=== PATIENT | female | born 1950 | race Caucasian/White ===

== ENCOUNTER 2016-04-08 10:55 | Outpatient (CLI) | payer OTHER | END 2016-04-08 10:56 | disposition home or self-care (01) | DX: S83.242A Other tear of medial meniscus, current injury, left knee, initial encounter (principal); M23.8X2 Other internal derangements of left knee; M25.562 Pain in left knee ==

== ENCOUNTER 2016-12-02 23:53 | Outpatient (CLI) | payer OTHER ==
[2016-12-02 18:28] LABS: BASOPHILS # (AUTO) 0.1 10^3/uL (0.0-0.1); BASOPHILS % (AUTO) 1.5 %; EOSINOPHILS # (AUTO) 0.1 10^3/uL (0.0-0.7); EOSINOPHILS % (AUTO) 2.6 %; HCT - HEMATOCRIT 40.6 % (37.0-47.0); LYMPHOCYTES # (AUTO) 2.5 10^3/uL (1.5-3.5); LYMPHOCYTES % (AUTO) 45.5 %; MEAN CORPUSCULAR HEMOGLOBIN 26.7 pg (27.0-31.0); MEAN CORPUSCULAR HGB CONC 32.1 g/dL (32.0-36.0); MEAN CORPUSCULAR VOLUME 83.3 fL (81.0-99.0); MEAN PLATELET VOLUME 8.6 fL (7.9-10.8); MONOCYTES # (AUTO) 0.4 10^3/uL (0.0-1.0); MONOCYTES % (AUTO) 6.6 %; NEUTROPHILS # (AUTO) 2.4 10^3/uL (1.5-6.6); NEUTROPHILS % (AUTO) 43.8 %; NUCLEATED RED BLOOD CELLS AUTO 0.1 /100WBC; RED BLOOD COUNT 4.87 10^6/uL (4.20-5.40); RED CELL DISTRIBUTION WIDTH 13.6 % (12.0-15.0); UNCORRECTED WHITE BLOOD COUNT 5.5 x10^3/uL; WHITE BLOOD COUNT 5.5 x10^3/uL (4.8-10.8)
[2016-12-02 18:53] LABS: ALBUMIN/GLOBULIN RATIO 1.1 (1.0-2.2); BILIRUBIN,TOTAL 0.5 mg/dL (0.2-1.0); BUN - BLOOD UREA NITROGEN 20 mg/dL (6-20); CALCIUM 9.1 mg/dL (8.5-10.3); CARBON DIOXIDE - CO2 27 mmol/L (21-32); CHLORIDE 105 mmol/L (101-111); CHOLESTEROL 257 mg/dL; CREATININE 0.9 mg/dL (0.4-1.0); GFR - MDRD 63 (>89); GLUCOSE 73 mg/dL (70-100); HDL CHOLESTEROL 64 mg/dL; LDL/HDL RATIO 2.8 (<4.4); POTASSIUM 3.9 mmol/L (3.5-5.0); SODIUM 138 mmol/L (135-145); TRIGLYCERIDES 82 mg/dL; VLDL CHOLESTEROL 16 mg/dL
== END 2016-12-02 23:54 | disposition home or self-care (01) ==
LOC: LAB.R 23:53
PROVIDERS: ATTEND Physician Assistant Medical
DX: Z00.00 Encounter for general adult medical examination without abnormal findings (principal); M81.0 Age-related osteoporosis without current pathological fracture; Z11.59 Encounter for screening for other viral diseases
CPT/HCPCS: 80053; 80061; 82306; 84443; 85025; 86803

== ENCOUNTER 2016-12-07 08:00 | Outpatient (CLI) | payer OTHER | END 2016-12-07 08:01 | disposition home or self-care (01) | LOC: LAB.R 08:00 | PROVIDERS: ATTEND Physician Assistant Medical | DX: N30.00 Acute cystitis without hematuria (principal) | CPT/HCPCS: 87086 ==

== ENCOUNTER 2016-12-24 08:37 | Outpatient (CLI) | payer OTHER ==
--- NOTE | 2016-12-28 11:49 | DEXA Report ---
DEXA SCAN: 12/24/2016 CLINICAL INDICATION: Postmenopausal. TECHNIQUE: Dual energy x-ray absorptiometry (DXA) was performed on a [facility] system. Regions measured are the AP spine, femoral neck, and, if needed, forearm. COMPARISON: None. In accordance with the International Society for Clinical Densitometry (ISCD) guidelines, data from previous exams may be reanalyzed using current recommendations and techniques. This is done to allow a more accurate basis for comparison with the current study. FINDINGS The data for the lumbar spine is as follows: REGION BMD (g/cm/cm) T-SCORE Z-SCORE L1 0.934 -1.6 -0.5 L2 0.846 -2.9 -1.9 L3 0.876 -2.7 -1.6 L4 1.049 -1.3 -0.2 TOTAL 0.929 -2.1 -1.0 NOTE: All evaluable vertebrae are used for classification. The data for the hip is as follows: REGION BMD (g/cm/cm) T-SCORE Z-SCORE Neck 0.871 -1.2 -0.1 TOTAL 0.937 -0.6 0.3 NOTE: The femoral neck or total proximal femur, whichever is lowest, is used for classification. IMPRESSION: THE WHO CLASSIFICATION BASED ON THE INTERNATIONAL REFERENCE STANDARD IS OSTEOPENIA. THE FRACTURE RISK IS INCREASED. RECOMMENDATION: Patients with diagnosis of osteoporosis or osteopenia should have regular bone mineral density assessment. For those eligible for Medicare, routine testing is allowed once every 2 years. Testing frequency can be increased for patients who have rapidly progressing disease or for those who are receiving medical therapy to restore bone mass. COMMENT: World Health Organization (WHO) definitions for osteoporosis and osteopenia: NORMAL BMD: T-score at -1.0 or higher, fracture risk is low. OSTEOPENIA BMD: T-score between -1.0 and -2.5, fracture risk is increased. OSTEOPOROSIS BMD: T-score at -2.5 or lower, fracture risk high. National Osteoporosis Foundation recommends: 1. Obtain adequate dietary calcium (at least 1200 mg per day) and vitamin D (400 -800 international units per day). 2. Participate, as appropriate, in regular weightbearing and muscle- strengthening exercise. 3. Avoid tobacco use and reduce alcohol and caffeine intake. 4. For more detailed information see the website at www.NOF.org. MTDD
== END 2016-12-24 08:38 | disposition home or self-care (01) ==
LOC: DI 08:37
PROVIDERS: ATTEND Physician Assistant Medical
DX: M85.89 Other specified disorders of bone density and structure, multiple sites (principal); M25.512 Pain in left shoulder
CPT/HCPCS: 77080

== ENCOUNTER 2016-12-24 08:39 | Outpatient (CLI) | payer OTHER ==
--- NOTE | 2016-12-24 13:41 | XRAY Report ---
TWO VIEW LEFT SHOULDER: 12/24/2016 CLINICAL INDICATION: Pain. FINDINGS: Frontal and scapular Y views of the left shoulder demonstrate no evidence of fracture or d islocation. The joint spaces are preserved. No radiopaque foreign body is seen in the soft tissues. IMPRESSION: NORMAL LEFT SHOULDER. JOB #: [id number] EXT JOB #:[id number]
== END 2016-12-24 08:40 | disposition home or self-care (01) ==
LOC: DI 08:39
PROVIDERS: ATTEND Physician Assistant Medical
DX: M25.512 Pain in left shoulder (principal)

== ENCOUNTER 2017-05-31 08:00 | Outpatient (CLI) | payer OTHER | END 2017-05-31 08:01 | disposition home or self-care (01) | LOC: LAB.R 08:00 | PROVIDERS: ATTEND Physician Assistant Medical | DX: N30.00 Acute cystitis without hematuria (principal) | CPT/HCPCS: 87086 ==

== ENCOUNTER 2017-06-07 11:17 | Outpatient (CLI) | payer MEDICARE, OTHER ==
--- NOTE | 2017-06-08 11:48 | Mammography Report ---
BILATERAL SCREENING MAMMOGRAM: 06/07/2017. COMPARISON: Mammogram 03/17/2016. INDICATION: Screening. TECHNIQUE: Bilateral CC and MLO breast views. FINDINGS: The breast parenchyma is heterogeneously dense which may limit the sensitivity of mammography. Postoperative change of the left breast is noted. No dominant mass, architectural distortion, or concerning cluster of microcalcifications are seen. IMPRESSION: 1. BI-RADS 2 - BENIGN FINDINGS. 2. RECOMMEND ANNUAL SCREENING MAMMOGRAM. STANDARD QUALIFYING STATEMENTS: 1. This examination was reviewed with the aid of Computer-Aided Detection (CAD) . 2. A negative or benign imaging report should not delay biopsy if clinically suspicious findings are present. Consider surgical consultation if warranted. More than 5 % of cancers are not identified by imaging. 3. Dense breasts may obscure an underlying neoplasm. TD: 06/08/2017 11:47 MARTHA
== END 2017-06-07 11:18 | disposition home or self-care (01) ==
LOC: DI 11:17
PROVIDERS: ATTEND Physician Assistant Medical
DX: Z12.31 Encounter for screening mammogram for malignant neoplasm of breast (principal)
CPT/HCPCS: 77067

== ENCOUNTER 2017-06-13 08:00 | Outpatient (CLI) | payer MEDICARE, OTHER | END 2017-06-13 08:01 | disposition home or self-care (01) | LOC: LAB.R 08:00 | PROVIDERS: ATTEND Physician Assistant Medical | DX: N30.00 Acute cystitis without hematuria (principal) | CPT/HCPCS: 87086 ==

== ENCOUNTER 2018-04-15 09:15 | Outpatient (CLI) | payer MEDICARE, OTHER ==
[2018-04-15 10:21] LABS: ALBUMIN 3.8 g/dL (3.2-5.5); ALBUMIN/GLOBULIN RATIO 1.1 (1.0-2.2); ALKALINE PHOSPHATASE 61 IU/L (42-121); ALT ALANINE AMINOTRANSFERASE 26 IU/L (10-60); AST ASPARTATE AMINOTRANSFERASE 24 IU/L (10-42); BILIRUBIN,TOTAL 0.6 mg/dL (0.2-1.0); BUN - BLOOD UREA NITROGEN 14 mg/dL (6-20); CALCIUM 8.9 mg/dL (8.5-10.3); CARBON DIOXIDE - CO2 26 mmol/L (21-32); CHLORIDE 104 mmol/L (101-111); CHOL/HDL RATIO 3.5 (<4.4); CHOLESTEROL 225 mg/dL; CREATININE 0.8 mg/dL (0.4-1.0); GFR - MDRD 72 (>89); GLUCOSE 91 mg/dL (70-100); HDL CHOLESTEROL 64 mg/dL; LDL CHOLESTEROL,CALCULATED 144 mg/dL; LDL/HDL RATIO 2.3 (<4.4); SODIUM 136 mmol/L (135-145); TOTAL PROTEIN 7.3 g/dL (6.7-8.2); VLDL CHOLESTEROL 17 mg/dL
[2018-04-15 10:23] LABS: BASOPHILS # (AUTO) 0.1 10^3/uL (0.0-0.1); BASOPHILS % (AUTO) 1.4 %; EOSINOPHILS # (AUTO) 0.1 10^3/uL (0.0-0.7); EOSINOPHILS % (AUTO) 2.7 %; HGB - HEMOGLOBIN 13.5 g/dL (12.0-16.0); LYMPHOCYTES # (AUTO) 1.1 10^3/uL (1.5-3.5); LYMPHOCYTES % (AUTO) 23.7 %; MEAN CORPUSCULAR HEMOGLOBIN 27.6 pg (27.0-31.0); MEAN CORPUSCULAR HGB CONC 33.4 g/dL (32.0-36.0); MEAN CORPUSCULAR VOLUME 82.6 fL (81.0-99.0); MEAN PLATELET VOLUME 8.1 fL (7.9-10.8); MONOCYTES # (AUTO) 0.5 10^3/uL (0.0-1.0); MONOCYTES % (AUTO) 10.8 %; NEUTROPHILS % (AUTO) 61.4 %; PLT - PLATELET COUNT 232 10^3/uL (130-450); RED BLOOD COUNT 4.88 10^6/uL (4.20-5.40); RED CELL DISTRIBUTION WIDTH 13.8 % (12.0-15.0); WHITE BLOOD COUNT 4.9 x10^3/uL (4.8-10.8)
== END 2018-04-15 23:59 | disposition home or self-care (01) ==
LOC: LAB.R 09:15
PROVIDERS: ATTEND Physician Assistant Medical
DX: Z79.899 Other long term (current) drug therapy (principal); Z20.3 Contact with and (suspected) exposure to rabies
CPT/HCPCS: 36415; 80053; 80061; 81599; 82306; 83721; 84443; 85025; 86382

== ENCOUNTER 2018-04-15 09:30 | Outpatient (CLI) | payer MEDICARE, OTHER | END 2018-04-15 09:31 | disposition home or self-care (01) | LOC: LAB 09:30 | PROVIDERS: ATTEND Physician Assistant Medical | DX: Z53.9 Procedure and treatment not carried out, unspecified reason (principal) ==

== ENCOUNTER 2018-05-10 12:21 | Outpatient (CLI) | payer MEDICARE, OTHER | END 2018-05-10 23:59 | LOC: LAB.R 12:21 | PROVIDERS: ATTEND Physician Assistant Medical | DX: H04.129 Dry eye syndrome of unspecified lacrimal gland (principal); Z79.899 Other long term (current) drug therapy | CPT/HCPCS: 86038 ==

== ENCOUNTER 2018-08-02 09:25 | Outpatient (CLI) | payer MEDICARE, OTHER | END 2018-08-02 23:59 | disposition home or self-care (01) | LOC: LAB.R 09:25 | PROVIDERS: ATTEND Family Medicine | DX: N39.0 Urinary tract infection, site not specified (principal) | CPT/HCPCS: 87086 ==

== ENCOUNTER 2018-10-10 19:04 | Outpatient (CLI) | payer MEDICARE, OTHER | END 2018-10-10 23:59 | disposition home or self-care (01) | LOC: LAB.R 19:04 | PROVIDERS: ATTEND Nurse Practitioner | DX: N30.11 Interstitial cystitis (chronic) with hematuria (principal) | CPT/HCPCS: 87086 ==

== ENCOUNTER 2018-11-30 10:04 | Outpatient (CLI) | payer MEDICARE, OTHER | END 2018-11-30 23:59 | disposition home or self-care (01) | LOC: LAB.R 10:04 | PROVIDERS: ATTEND Family Medicine | DX: M54.2 Cervicalgia (principal); N30.11 Interstitial cystitis (chronic) with hematuria | CPT/HCPCS: 87086; 87181 ==

== ENCOUNTER 2019-04-05 11:53 | Outpatient (CLI) | payer MEDICARE, OTHER ==
--- NOTE | 2019-04-05 17:24 | XRAY Report ---
Reason: COUGH CHRONIC Procedure Date: 04/05/2019 Accession Number: [id number] / [id number] Procedure: XR - Chest 2 View X-Ray CPT Code: 57088 Final Report FULL RESULT: EXAM: CHEST RADIOGRAPHY EXAM DATE: 04/05/2019 12:05 PM. CLINICAL HISTORY: COUGH CHRONIC. COMPARISON: None. TECHNIQUE: 2 views. FINDINGS: Lungs/Pleura: No focal opacities evident. No pleural effusion. No pneumothorax. Normal volumes. Mediastinum: Heart and mediastinal contours are unremarkable. Other: None. IMPRESSION: Normal 2-view chest radiography. RADIA
== END 2019-04-05 11:54 | disposition home or self-care (01) ==
LOC: DI 11:53
PROVIDERS: ATTEND Nurse Practitioner
DX: R05 Cough (principal)
CPT/HCPCS: 71046

== ENCOUNTER 2019-06-28 08:00 | Outpatient (CLI) | payer MEDICARE, OTHER | END 2019-06-28 23:59 | disposition home or self-care (01) | LOC: LAB.WCP 08:00 | PROVIDERS: ATTEND Family Medicine | DX: R30.0 Dysuria (principal) | CPT/HCPCS: 87086 ==

== ENCOUNTER 2019-10-16 08:00 | Outpatient (CLI) | payer MEDICARE, OTHER | END 2019-10-16 23:59 | disposition home or self-care (01) | LOC: LAB.F 08:00 | PROVIDERS: ATTEND Physician Assistant | DX: R30.0 Dysuria (principal) | CPT/HCPCS: 81002 ==

== ENCOUNTER 2020-02-19 10:01 | Outpatient (CLI) | payer MEDICARE, OTHER ==
[2020-02-19 10:11] LABS: BASOPHILS # (AUTO) 0.1 10^3/uL (0.0-0.1); BASOPHILS % (AUTO) 1.5 %; EOSINOPHILS # (AUTO) 0.2 10^3/uL (0.0-0.7); EOSINOPHILS % (AUTO) 2.3 %; HGB - HEMOGLOBIN 13.5 g/dL (12.0-16.0); LYMPHOCYTES # (AUTO) 2.5 10^3/uL (1.5-3.5); LYMPHOCYTES % (AUTO) 38.7 %; MEAN CORPUSCULAR HEMOGLOBIN 27.6 pg (27.0-31.0); MEAN CORPUSCULAR HGB CONC 32.4 g/dL (32.0-36.0); MEAN CORPUSCULAR VOLUME 85.3 fL (81.0-99.0); MEAN PLATELET VOLUME 9.5 fL (7.9-10.8); MONOCYTES # (AUTO) 0.5 10^3/uL (0.0-1.0); MONOCYTES % (AUTO) 8.2 %; NEUTROPHILS # (AUTO) 3.2 10^3/uL (1.5-6.6); PLT - PLATELET COUNT 246 10^3/uL (130-450); RED BLOOD COUNT 4.89 10^6/uL (4.20-5.40); RED CELL DISTRIBUTION WIDTH 13.3 % (12.0-15.0); WHITE BLOOD COUNT 6.5 x10^3/uL (4.8-10.8)
[2020-02-19 10:30] LABS: ALBUMIN 3.8 g/dL (3.2-5.5); ALBUMIN/GLOBULIN RATIO 1.2 (1.0-2.2); ALKALINE PHOSPHATASE 54 IU/L (42-121); ALT ALANINE AMINOTRANSFERASE 22 IU/L (10-60); AST ASPARTATE AMINOTRANSFERASE 20 IU/L (10-42); BILIRUBIN,TOTAL 0.6 mg/dL (0.2-1.0); BUN - BLOOD UREA NITROGEN 20 mg/dL (6-20); CALCIUM 9.2 mg/dL (8.5-10.3); CARBON DIOXIDE - CO2 28 mmol/L (21-32); CHLORIDE 105 mmol/L (101-111); CHOL/HDL RATIO 3.9 (<4.4); CHOLESTEROL 248 mg/dL; GLUCOSE 89 mg/dL (70-100); HDL CHOLESTEROL 64 mg/dL; LDL CHOLESTEROL,CALCULATED 169 mg/dL; LDL/HDL RATIO 2.6 (<4.4); SODIUM 140 mmol/L (135-145); TOTAL PROTEIN 7.1 g/dL (6.7-8.2); VLDL CHOLESTEROL 15 mg/dL
== END 2020-02-19 10:02 | disposition home or self-care (01) ==
LOC: LAB 10:01
PROVIDERS: ATTEND Nurse Practitioner
DX: Z79.899 Other long term (current) drug therapy (principal)
CPT/HCPCS: 36415; 80053; 80061; 83721; 84443; 85025

== ENCOUNTER 2020-03-11 13:33 | Outpatient (CLI) | payer MEDICARE, OTHER | END 2020-03-11 13:34 | disposition home or self-care (01) | LOC: RT 13:33 | PROVIDERS: ATTEND Nurse Practitioner | DX: R68.89 Other general symptoms and signs (principal); R05 Cough ==

== ENCOUNTER 2020-06-03 13:15 | Outpatient (CLI) | payer MEDICARE, OTHER ==
--- NOTE | 2020-06-04 12:54 | Mammography Report ---
BILATERAL DIGITAL SCREENING MAMMOGRAM 3D/2D: 06/03/2020 CLINICAL: Routine screening. Comparison is made to exams dated: 06/07/2017 mammogram, 03/17/2016 mammogram, and 10/03/2014 mammogram - [facility]. The tissue of both breasts is heterogeneously dense. This may lower the sensitivity of mammography. No significant masses, calcifications, or other findings are seen in either breast. There has been no significant interval change. IMPRESSION: NEGATIVE There is no mammographic evidence of malignancy. A 1 year screening mammogram is recommended. This exam was interpreted at Station ID: [id number]. NOTE: For mammograms, a report in lay terms will be sent to the patient. Approximately 15% of breast malignancies will not be visualized mammographically. In the management of a palpable breast mass, a negative mammogram must not discourage biopsy of a clinically suspicious lesion. Electronically Signed By: Chriss Hernnadez M.D. ar/penrad:06/03/2020 14:30:24 ACR BI-RADS Category 1: Negative 3341F PARENCHYMAL PATTERN: (D) - The breast(s) demonstrate(s) heterogeneously dense fibroglandular joselito cruz. BI-RADS CATEGORY: (1) - 1 RECOMMENDATION: (ANNUAL) - Recommend routine annual screening mammography. [id number] 1 year screening LATERALITY: (B)
== END 2020-06-03 13:16 | disposition home or self-care (01) ==
LOC: DI 13:15
PROVIDERS: ATTEND Nurse Practitioner
DX: Z12.31 Encounter for screening mammogram for malignant neoplasm of breast (principal)

== ENCOUNTER 2020-06-03 13:17 | Outpatient (CLI) | payer MEDICARE, OTHER ==
--- NOTE | 2020-06-03 17:40 | DEXA Report ---
PROCEDURE: Dexa Spine and/or Hip INDICATIONS: POST MENOPAUSAL TECHNIQUE: Dual energy x-ray absorptiometry (DXA) was performed on a [employer] System. Regions measur ed are the AP Spine, femoral neck, and if needed forearm. COMPARISON: 12/24/2016. FINDINGS: Lumbar Spine: Bone Mineral Density 1.035 g/cm/cm,T score -1.2, osteopenia Left Femoral Neck: Bone Mineral Density 0.976 g/cm/cm, T score -0.3, normal (T score greater or equal to -1.0: NORMAL) (T score from -1.1 to -2.4: OSTEOPENIA) (T score less than or equal to -2.5 to: OSTEOPOROSIS) Impression: Osteopenia. Patient is at increased risk for fracture Patients with diagnosis of osteoporosis or osteopenia should have regular bone mineral density assess ment. For those eligible for Medicare, routine testing is allowed once every 2 years. Testing frequ ency can be increased for patients who have rapidly progressing disease or for those who are receivin g medical therapy to restore bone mass. Reviewed by: Dagoberto Vang MD on 06/03/2020 5:38 PM PST Approved by: Dagoberto Vang MD on 06/03/2020 5:38 PM PST Station ID: [id number]
== END 2020-06-03 13:18 | disposition home or self-care (01) ==
LOC: DI 13:17
PROVIDERS: ATTEND Nurse Practitioner
DX: M85.89 Other specified disorders of bone density and structure, multiple sites (principal); Z78.0 Asymptomatic menopausal state

== ENCOUNTER 2021-02-16 15:24 | Outpatient (CLI) | payer MEDICARE, OTHER | END 2021-02-16 15:25 | disposition home or self-care (01) | LOC: LAB 15:24 | PROVIDERS: ATTEND Nurse Practitioner | DX: R30.0 Dysuria (principal) | CPT/HCPCS: 87086 ==

== ENCOUNTER 2021-05-05 11:24 | Outpatient (CLI) | payer MEDICARE, OTHER ==
[2021-05-05 12:04] LABS: BASOPHILS # (AUTO) 0.1 10^3/uL (0.0-0.1); BASOPHILS % (AUTO) 1.6 %; EOSINOPHILS # (AUTO) 0.1 10^3/uL (0.0-0.7); EOSINOPHILS % (AUTO) 2.6 %; HCT - HEMATOCRIT 39.9 % (37.0-47.0); LYMPHOCYTES # (AUTO) 2.1 10^3/uL (1.5-3.5); LYMPHOCYTES % (AUTO) 41.7 %; MEAN CORPUSCULAR HEMOGLOBIN 27.4 pg (27.0-31.0); MEAN CORPUSCULAR HGB CONC 32.6 g/dL (32.0-36.0); MEAN CORPUSCULAR VOLUME 84.2 fL (81.0-99.0); MEAN PLATELET VOLUME 9.3 fL (7.9-10.8); MONOCYTES # (AUTO) 0.4 10^3/uL (0.0-1.0); MONOCYTES % (AUTO) 7.5 %; NEUTROPHILS # (AUTO) 2.4 10^3/uL (1.5-6.6); NEUTROPHILS % (AUTO) 46.4 %; PLT - PLATELET COUNT 225 10^3/uL (130-450); RED BLOOD COUNT 4.74 10^6/uL (4.20-5.40); RED CELL DISTRIBUTION WIDTH 13.7 % (12.0-15.0); WHITE BLOOD COUNT 5.1 x10^3/uL (4.8-10.8)
[2021-05-05 12:26] LABS: ALBUMIN 3.6 g/dL (3.2-5.5); ALBUMIN/GLOBULIN RATIO 1.2 (1.0-2.2); ALKALINE PHOSPHATASE 53 IU/L (42-121); ALT ALANINE AMINOTRANSFERASE 24 IU/L (10-60); AST ASPARTATE AMINOTRANSFERASE 21 IU/L (10-42); BILIRUBIN,TOTAL 0.6 mg/dL (0.2-1.0); BUN - BLOOD UREA NITROGEN 16 mg/dL (6-20); CALCIUM 8.9 mg/dL (8.5-10.3); CARBON DIOXIDE - CO2 28 mmol/L (21-32); CHLORIDE 101 mmol/L (101-111); CHOLESTEROL 242 mg/dL; CREATININE 0.9 mg/dL (0.4-1.0); GFR - MDRD 62 (>89); GLUCOSE 82 mg/dL (70-100); HDL CHOLESTEROL 61 mg/dL; LDL CHOLESTEROL,CALCULATED 163 mg/dL; LDL/HDL RATIO 2.7 (<4.4); POTASSIUM 4.3 mmol/L (3.5-5.0); SODIUM 136 mmol/L (135-145); TOTAL PROTEIN 6.6 g/dL (6.7-8.2); TRIGLYCERIDES 92 mg/dL; VLDL CHOLESTEROL 18 mg/dL
[2021-05-05 12:37] LABS: THYROID STIMULATING HORMONE 2.47 uIU/mL (0.34-5.60)
== END 2021-05-05 11:25 | disposition home or self-care (01) ==
LOC: LAB 11:24
PROVIDERS: ATTEND Registered Nurse
DX: G43.909 Migraine, unspecified, not intractable, without status migrainosus (principal); Z79.899 Other long term (current) drug therapy
CPT/HCPCS: 36415; 80053; 80061; 83721; 84443; 85025

== ENCOUNTER 2021-05-19 09:25 | Outpatient (CLI) | payer MEDICARE, OTHER ==
--- NOTE | 2021-05-19 15:38 | XRAY Report ---
PROCEDURE: Hand 3 View RT INDICATIONS: RIGHT THUMB PAIN TECHNIQUE: 3 views of the hand(s) acquired. COMPARISON: X-ray wrist 05/19/2021 FINDINGS: Bones: No fractures or dislocations. No suspicious bony lesions. Minimal scattered areas of IP deg enerative narrowing. Soft tissues: No suspicious soft tissue calcifications. IMPRESSION: No visualized acute fracture or dislocation. However, occult injury cannot be excluded. Recommend charley rt interval imaging follow-up in 7-10 days as clinically indicated for additional evaluation. Reviewed by: Marci Doyle MD on 05/19/2021 3:36 PM PST Approved by: Marci Doyle MD on 05/19/2021 3:36 PM PST Station ID: [id number]
--- NOTE | 2021-05-20 15:52 | XRAY Report ---
PROCEDURE: Wrist 3 View RT INDICATIONS: WRIST PAIN TECHNIQUE: 3 views of the wrist were acquired. COMPARISON: None. FINDINGS: BONES: No acute, displaced fracture or dislocation. Moderate to advanced arthrosis of the triscaphe s caphoid articulation. The carpal bones are normally aligned. SOFT TISSUES: No focal abnormality. IMPRESSION: 1.No acute osseous abnormality. Reviewed by: Dean Martinez MD on 05/20/2021 3:50 PM PST Approved by: Dean Martinez MD on 05/20/2021 3:50 PM PST Station ID: [id number]
== END 2021-05-19 09:26 | disposition home or self-care (01) ==
LOC: DI.WOS 09:25
PROVIDERS: ATTEND Physician Assistant
DX: M25.531 Pain in right wrist (principal); M79.644 Pain in right finger(s)

== ENCOUNTER 2022-09-11 16:49 | Emergency (ER) | payer MEDICARE, OTHER ==
--- NOTE | 2022-09-11 17:56 | ED Physician Documentation ---
PD HPI UPPER EXT INJURY - Stated complaint Stated Complaint: GLF/HEAD INJ - Chief complaint Chief Complaint: Trauma Ext - History obtained from History obtained from: Patient, Family - History of Present Illness Location: Right, Left, Elbow (R), Wrist Type of injury: Fall Where injury occurred: Street Timing - onset: Today Timing - duration: Hours Timing - details: Abrupt onset, Still present Improved by: Rest, Ice, Immobilization Worsened by: Moving, Palpating Associated symptoms: Swelling. No: Weakness, Numbness, Tingling Contributing factors: No: Anticoagulated Similar symptoms before: Diagnosis (arthritis and tendonitis.) Recently seen: Clinic (for wrist pain) - Additonal information Additional information: Becca Wise is a 72-year-old female who was ambulating on the street today when she went somewhere near where the bathrooms are over in [place] and she tripped over a covering for a road block. She fell forward onto her outstretched hands and face. She is complaining of pain to both of her wrists and her right elbow. She has been having some problem with both of her wrists for some time with arthritis. And tendinitis. She denies loss of consciousness associated with this fall she denies any pain in her neck she has an abrasion above her lip. She denies any injury to her chest abdomen or pelvis. Review of Systems Constitutional: denies: Fever Ears: denies: Ear pain Nose: denies: Congestion Throat: denies: Sore throat Respiratory: denies: Cough GI: denies: Vomiting, Constipation, Diarrhea Skin: denies: Rash Musculoskeletal: reports: Extremity pain, Joint pain. denies: Neck pain, Back pain Neurologic: denies: Generalized weakness, Focal weakness, Numbness PD PAST MEDICAL HISTORY - Present Medications Home Medications: Ambulatory Orders Medication Instructions Recorded Confirmed Escitalopram Oxalate [Lexapro] 20 mg PO DAILY 12/16/15 12/16/15 Famciclovir [Famvir] 500 mg PO DAILY 12/16/15 12/16/15 Sumatriptan [Imitrex] 20 mg NS DAILY 12/16/15 12/17/15 buPROPion HCL [Bupropion HCl Sr] 150 mg PO DAILY 12/16/15 12/16/15 HYDROcod/ACETAM 5/325 [[place] 5/325] 1 - 2 tablet PO Q6H PRN #14 tablet 09/11/22 - Allergies Allergies/Adverse Reactions: Allergies Allergy/AdvReac Type Severity Reaction Status Date / Time No Known Drug Allergies Allergy Verified 09/11/22 17:03 PD ED PE NORMAL - Vitals Vital signs reviewed: Yes (Hypertensive) - General General: Alert and oriented X 3, No acute distress, Well developed/nourished - HEENT HEENT: PERRL, EOMI, Other (There is an abrasion to the upper lip the teeth are without looseness. No evidence of jaw fracture) - Neck Neck: Supple, no meningeal sign, No bony TTP - Cardiac Cardiac: RRR, No murmur - Respiratory Respiratory: No respiratory distress, Clear bilaterally - Abdomen Abdomen: Soft, Non tender - Back Back: No CVA TTP, No spinal TTP - Derm Derm: Normal color, Warm and dry, No rash - Extremities Extremities: Other (There is specific point tenderness to the radius and ulna of both wrists worse on the left than the right she has reduced range of motion to flexion extension secondary to pain. There is mild swelling to the left wrist. Distal neurovascular components are intact.) - Neuro Neuro: Alert and oriented X 3, office rep 2-12 intact, No motor deficit, No sensory deficit, Normal speech Eye Opening: Spontaneous Motor: Obeys Commands Verbal: Oriented GCS Score: 15 - Psych Psych: Normal mood, Normal affect - Free text exam Free text exam: The patient has fair range of motion to the right elbow and she is able to flex extend supinate and pronate. She does have some mild tenderness associated with that and extension fully causes some additional pain. Results - Vitals Vitals: Vital Signs - 24 hr 09/11/22 09/11/22 16:55 20:35 Heart Rate 69 71 Respiratory 17 16 Rate Blood Pressure 142/98 H 143/90 H O2 Saturation 98 100 Oxygen O2 Source Room air - Rads (name of study) elbow Relevant Findings:: Prelim report reviewed (Impression: Subtle slightly depressed radial head fracture with associated large anterior and posterior elbow joint effusion.) wrist Relevant Findings:: Prelim report reviewed (Impression: Mild arthritic changes. No fracture or foreign body.), EMP independent interpretation of test Procedures - Splint (location) - Minor Wrists Splint applied by: Tech Type of splint: Fiberglass, Volar cock up Other: Patient tolerated well, No complications, Neurovascular intact, Good alignment, Sling provided PD Medical Decision Making - ED course Complexity details: considered differential, d/w patient, d/w family ED course: 72-year-old Becca Wise has fallen injuring both of her wrists and her right elbow it does appear she has a subtle fracture to the right radial head and she has excellent range of motion associated with this and we have placed her into a sling for treatment of that. She also appears to have sprained both of her wrist the left appears worse than the right. She is placed into splints bilaterally. Departure - Departure Disposition: Home, Self Care Clinical Impression: Sprain of wrist, right Qualifiers: Encounter type: initial encounter Qualified Code(s): S63.501A - Unspecified sprain of right wrist, initial encounter Sprain of wrist, left Qualifiers: Encounter type: initial encounter Qualified Code(s): S63.502A - Unspecified sprain of left wrist, initial encounter Fracture of radial head, right, closed Qualifiers: Encounter type: initial encounter Fracture alignment: nondisplaced Qualified Code(s): S52.124A - Nondisplaced fracture of head of right radius, initial encounter for closed fracture Condition: Stable Instructions: ED Fx Radial Head, ED Sprain Wrist Follow-Up: DOMINGO MORRELL DO [Primary Care Provider] - Prescriptions: HYDROcod/ACETAM 5/325 [[place] 5/325] 1 - 2 tablet PO Q6H PRN #14 tablet PRN Reason: Pain Comments: Becca, it looks like you have sprained both of your wrist and you do have a subtle fracture of the radial head on the right which is a bone in the elbow. This fracture usually heals well with a sling and range of motion. As far as the wrists we have placed you into splints for comfort and I will provide some narcotic pain reliever for pain relief. I have E scribed this to the [facility] in [place]. Discharge Date/Time: 09/11/22 20:35
[2022-09-11] MEDS ORDERED: ACETAMINOPHEN 325 MG TABLET PO STA (18:39)
[2022-09-11] MEDS ORDERED: KETOROLAC 30 MG/ML VIAL IM STA (18:59)
--- NOTE | 2022-09-11 19:33 | XRAY Report ---
PROCEDURE: Wrist 4 View BILAT INDICATIONS: FOOSHs L>R pain TECHNIQUE: 4 views of the wrist were acquired. COMPARISON: None. FINDINGS: Bones: No fractures or dislocations. No suspicious bony lesions. Normal bone mineralization. Degene rative changes noted involving both triscaphe joints Soft tissues: No suspicious soft tissue calcifications or masses. IMPRESSION: Mild arthritic changes. No fracture or foreign body Reviewed by: Trevor Palmer MD on 09/11/2022 6:32 PM AKCOLT Approved by: Trevor Palmer MD on 09/11/2022 6:32 PM AKDT Station ID: [id number]
--- NOTE | 2022-09-11 19:33 | XRAY Report ---
PROCEDURE: Elbow 3 View RT INDICATIONS: fooshs right elbow pain TECHNIQUE: 3 views of the elbow were acquired. COMPARISON: None. FINDINGS: Bones: No dislocations. No suspicious bony lesions. There is a radial head slightly depressed frac ture seen on 2 of the 3 views. Soft tissues: Large anterior and posterior elbow joint effusion. No suspicious soft tissue calcific ations or masses. IMPRESSION: Subtle slightly depressed radial head fracture with associated large anterior and posterior elbow kenyatta nt effusion. Reviewed by: Lizandro White MD on 09/11/2022 7:32 PM PDT Approved by: Lizandro White MD on 09/11/2022 7:32 PM PDT Station ID: [id number]
[2022-09-11] MEDS ORDERED: HYDROcod/ACET 5/325 Prepack 4 PO STA (19:55)
[2022-09-11 20:39] VITALS: BP 143/90
== END 2022-09-11 20:35 | disposition home or self-care (01) ==
LOC: ED 16:49
DX: S52.124A Nondisplaced fracture of head of right radius, initial encounter for closed fracture (principal); S63.502A Unspecified sprain of left wrist, initial encounter; W01.0XXA Fall on same level from slipping, tripping and stumbling without subsequent striking against object, initial encounter; Y92.410 Unspecified street and highway as the place of occurrence of the external cause
CPT/HCPCS: 29105; 29125; 73080; 73110; 96372; 99283; A9270

== ENCOUNTER 2022-09-13 17:53 | Emergency (ER) | payer MEDICARE ==
--- NOTE | 2022-09-13 18:05 | ED Physician Documentation ---
PD HPI HEADACHE - Stated complaint Stated Complaint: HEADACHE - Chief complaint Chief Complaint: Neuro - History obtained from History obtained from: Patient - Additional information Additional information: 72-year-old female with a history of migraine headaches presents with a left- sided headache that has been Present for the last 2 days. The patient actually fell a couple of days ago and was seen here at that time and had reassuring physical exam. She had tripped and fallen, face forward and put out her arms to block her fall, she did hit Her face on the ground and sustained abrasion to the upper lip.She developed a headache thereafter though it was mild and resolved with ibuprofen at home But subsequently recurred. It is on the left side of the head, from the back of the neck up into the scalp. It is not a thunderclap headache and has been Mild, and slow onset. She has some mild nausea, no vomiting, no vision changes or change in behavior or mentation. Feels somewhat similar to prior headaches but more so in the neck though she states that her neck has been sore from laying down more than usual and likely from her fall.S he had spoken with a physician friend of hers who advised her to come to the ER to be checked out "just in case." She is not on any anticoagulation. Review of Systems Constitutional: reports: Reviewed and negative Eyes: reports: Reviewed and negative Ears: reports: Reviewed and negative Nose: reports: Reviewed and negative Throat: reports: Reviewed and negative Cardiac: reports: Reviewed and negative Respiratory: reports: Reviewed and negative GI: reports: Reviewed and negative Musculoskeletal: reports: Neck pain, Extremity pain Neurologic: reports: Headache. denies: Generalized weakness, Focal weakness, Numbness, Difficulty speaking, Near syncope, Syncope, Seizure, Confused, Altered mental status, Unresponsive, Head injury, LOC, Reviewed and negative, Other PD PAST MEDICAL HISTORY - Past Medical History Past Medical History: Yes Neuro: Migraines - Present Medications Home Medications: Ambulatory Orders Medication Instructions Recorded Confirmed Escitalopram Oxalate [Lexapro] 20 mg PO DAILY 12/16/15 09/13/22 Famciclovir [Famvir] 500 mg PO DAILY 12/16/15 09/13/22 Sumatriptan [Imitrex] 20 mg NS DAILY 12/16/15 09/13/22 buPROPion HCL [Bupropion HCl Sr] 150 mg PO DAILY 12/16/15 09/13/22 HYDROcod/ACETAM 5/325 [[place] 5/325] 1 - 2 tablet PO Q6H PRN #14 tablet 09/11/22 09/13/22 - Allergies Allergies/Adverse Reactions: Allergies Allergy/AdvReac Type Severity Reaction Status Date / Time No Known Drug Allergies Allergy Verified 09/13/22 17:57 PD ED PE NORMAL - Vitals Vital signs reviewed: Yes - General General: Alert and oriented X 3, No acute distress, Well developed/nourished - HEENT HEENT: PERRL, EOMI, Other (Small superficial scab upper lip. No other facial trauma, no scalp trauma or hematomas) - Neck Neck: Supple, no meningeal sign, No bony TTP, C-Spine cleared by NEXUS criteria - Cardiac Cardiac: RRR, No murmur - Respiratory Respiratory: No respiratory distress, Clear bilaterally - Derm Derm: Normal color, Warm and dry - Neuro Neuro: Alert and oriented X 3, No motor deficit, No sensory deficit, Normal speech Eye Opening: Spontaneous Motor: Obeys Commands Verbal: Oriented GCS Score: 15 - Psych Psych: Normal mood, Normal affect Results - Vitals Vitals: Vital Signs - 24 hr 09/13/22 17:57 Temperature 36.6 C Heart Rate 66 Respiratory 18 Rate Blood Pressure 143/72 H O2 Saturation 98 Oxygen O2 Source Room air - Rads (name of study) No standard instances Relevant Findings:: Final report received PD Medical Decision Making - ED course Complexity details: reviewed old records, reviewed results, re-evaluated patient, considered differential, d/w patient, d/w family ED course: This is a very nice and well-appearing 72-year-old female who presented with headache. She did fall a couple of days ago and though she is not on blood thinners And has not had any neurologic changes, given the ongoing headache In the setting of trauma and her age, I did recommend we get a CT scan which we obtained and this was negative, there are no signs of bleeding, no scalp injuries or hematomas. After further discussion with patient, she does have a history of migraines and this feels somewhat similar, it is not a thunderclap headache and not the worst headache of her life. She has no associated infectious symptoms, No meningeal symptoms, no fever. This is likely a posttrauma headache, but also quite similar to her migraines. I discussed optio ns for treatment of migraine and patient has done well with triptans in the past so we will give her a subcu sumatriptan injection here and patient can continue her regular treatment at home as needed, she is on ibuprofen and Tylenol. Departure - Departure Disposition: Home, Self Care Clinical Impression: Headache Qualifiers: Headache type: post-traumatic Headache chronicity pattern: acute headache Intractability: not intractable Qualified Code(s): G44.319 - Acute post- traumatic headache, not intractable Condition: Good Instructions: ED Headache Migraine Comments: Your CT scan is reassuring, no signs of bleeding or other acute injury from your fall. I suspect the fall and a subsequent neck strain and generalized di scomfort is triggered a migraine headache. We have given you sumatriptan injection here in the ER. You can continue the regular medications you are taking at home. Try heating pad and repositioning on the neck to reduce some of the tension. If your symptoms worsen, return to the ER or see your PCP.
--- NOTE | 2022-09-13 18:29 | CT Report ---
PROCEDURE: HEAD WO INDICATIONS: fall, headache TECHNIQUE: Noncontrast 4.5 mm thick angled axial sections acquired from the foramen magnum to the vertex. For r adiation dose reduction, the following was used: automated exposure control, adjustment of mA and/or kV according to patient size. COMPARISON: None. FINDINGS: Image quality: Excellent. CSF spaces: Basal cisterns are patent. No extra-axial fluid collections. Ventricles are normal in size and shape. Brain: No midline shift. No intracranial masses or hemorrhage. Huffman-white matter interface is norm al. Skull and face: Calvarium and visualized facial bones are intact, without suspicious lesions. Sinuses: Visualized sinuses and mastoids are clear. IMPRESSION: 1. No CT evidence of acute intracranial abnormalities. 2. No acute skull fracture. Reviewed by: Bryant Smith MD on 09/13/2022 6:27 PM PDT Approved by: Bryant Smith MD on 09/13/2022 6:27 PM PDT Station ID: [id number]
[2022-09-13] MEDS ORDERED: SUMAtriptan 6 MG/0.5 ML VIAL SUBQ STA (18:43)
[2022-09-13 19:11] VITALS: BP 133/68
== END 2022-09-13 19:08 | disposition home or self-care (01) ==
LOC: ED 17:53
DX: G44.319 Acute post-traumatic headache, not intractable (principal)
CPT/HCPCS: 96372; 99283; 99284

== ENCOUNTER 2022-09-15 01:15 | Emergency (ER) | payer MEDICARE ==
[2022-09-15] MEDS ORDERED: LIDOCAINE VISCOUS 2% 15 ML ORAL SYRINGE MM STA (03:37)
[2022-09-15] MEDS ORDERED: OXYMETAZOLINE HCL 100 SPRAYS BOTTLE NAS STA (03:37)
--- NOTE | 2022-09-15 03:37 | ED Physician Documentation ---
PD HPI HEENT - Stated complaint Stated Complaint: NOSE BLEED - Chief complaint Chief Complaint: Heent - History obtained from History obtained from: Patient - Additional information Additional information: HPI from patient. Patient has had episodic spontaneous/atraumatic left nare epistaxis for past 10 days. No inciting event, no exacerbating nor ameliorating factors. Does not take blood-thinning medications. Has not had persistent epistaxis in the past like this. Denies fever, congestion. Review of Systems Nose: reports: Epistaxis. denies: Congestion, Sinus pressure / pain PD PAST MEDICAL HISTORY - Past Medical History Neuro: Migraines Psych: Depression, Anxiety - Present Medications Home Medications: Ambulatory Orders Medication Instructions Recorded Confirmed Escitalopram Oxalate [Lexapro] 20 mg PO DAILY 12/16/15 09/13/22 Famciclovir [Famvir] 500 mg PO DAILY 12/16/15 09/13/22 Sumatriptan [Imitrex] 20 mg NS DAILY 12/16/15 09/13/22 buPROPion HCL [Bupropion HCl Sr] 150 mg PO DAILY 12/16/15 09/13/22 HYDROcod/ACETAM 5/325 [[place] 5/325] 1 - 2 tablet PO Q6H PRN #14 tablet 09/11/22 09/13/22 - Allergies Allergies/Adverse Reactions: Allergies Allergy/AdvReac Type Severity Reaction Status Date / Time No Known Drug Allergies Allergy Verified 09/13/22 17:57 - Social History Does the pt smoke?: No Smoking Status: Never smoker PD ED PE NORMAL - Vitals Vital signs reviewed: Yes - General General: Alert and oriented X 3, No acute distress, Well developed/nourished - HEENT HEENT: Moist mucous membranes, Pharynx benign PD ED PE EXPANDED - HEENT HEENT: Left nares epistaxis (bleeding from an isolated, raised vessel left anterior septum, nonpulsatile) Results - Vitals Vitals: Vital Signs - 24 hr 09/15/22 06:20 Heart Rate 65 Respiratory 17 Rate Blood Pressure 124/85 H O2 Saturation 65 L Oxygen O2 Source Room air Procedures - Epistaxis - Minor Site: Left Preparation: Clots removed, Afrin, Lidocaine, Clamp / pressure applied Treatment: Silver Nitrate Other: Observed - no bleeding, Pt tolerated well, Other (initial attempts with silver nitrate did not result in hemostasis; as preprarations made for insertion of rapid rhino, clamps were applied and, upon removal of clamps, the bleeding finally had stopped. No further bleeding after 20 minutes of subsequent ED observation) PD Medical Decision Making - ED course Complexity details: considered differential, d/w patient ED course: hemostasis achieved with multiple applications of silver nitrate as above. Rapid rhino was not needed. Return precautions discussed. Departure - Departure Disposition: 01 Home, Self Care Clinical Impression: Epistaxis Condition: Good Instructions: ED Nosebleed Discharge Date/Time: 09/15/22 06:20
[2022-09-15] MEDS ORDERED: SILVER NITRATE APPLICATOR TOP STA (04:19)
[2022-09-15 06:22] VITALS: BP 124/85
== END 2022-09-15 06:20 | disposition home or self-care (01) ==
LOC: ED 01:15
DX: R04.0 Epistaxis (principal)
CPT/HCPCS: 30901; 99282

== ENCOUNTER 2023-11-01 11:46 | Emergency (ER) | payer MEDICARE ==
[2023-11-01 11:57] VITALS: BP 112/71; O2SAT 99
--- NOTE | 2023-11-01 12:41 | ED Physician Documentation ---
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 The bat the next day and Patient has sent the bat off to the state for testing but does not have the results yet. She expects to have the results today. The injury occurred a few days ago And was very minor poke on the finger, she did express some blood from it and washed it thoroughly. The wound is now nonexistent but she presents for vaccine series. The patient was previously vaccinated though it was many years ago (but with current vaccine type) but she has always had a positive titer therefore has not received any boosters. Her last titer was done in 2019 which was 0.7. Review of Systems Constitutional: reports: Reviewed and negative Eyes: reports: Reviewed and negative Ears: reports: Reviewed and negative Nose: reports: Congestion Throat: reports: Reviewed and negative Cardiac: reports: Reviewed and negative Respiratory: reports: Reviewed and negative GI: reports: Reviewed and negative : reports: Reviewed and negative Skin: reports: Bite / sting PD PAST MEDICAL HISTORY - Past Medical History Past Medical History: Yes Neuro: Migraines Psych: Depression, Anxiety - Past Surgical History Past Surgical History: No - Present Medications Home Medications: Ambulatory Orders Medication Instructions Recorded Confirmed Escitalopram Oxalate [Lexapro] 20 mg PO DAILY 12/16/15 09/13/22 Famciclovir [Famvir] 500 mg PO DAILY 12/16/15 09/13/22 SUMAtriptan [Imitrex] 20 mg NS DAILY 12/16/15 09/13/22 buPROPion HCL [Bupropion HCl Sr] 150 mg PO DAILY 12/16/15 09/13/22 - Allergies Allergies/Adverse Reactions: Allergies Allergy/AdvReac Type Severity Reaction Status Date / Time No Known Drug Allergies Allergy Verified 11/01/23 11:56 - Social History Does the pt smoke?: No Smoking Status: Never smoker Does the pt drink ETOH?: No Does the pt have substance abuse?: No - Immunizations Immunizations are current?: Yes PD ED PE NORMAL - Vitals Vital signs reviewed: Yes - General General: Alert and oriented X 3, No acute distress, Well developed/nourished - HEENT HEENT: Atraumatic, Moist mucous membranes - Cardiac Cardiac: RRR, No murmur - Respiratory Respiratory: No respiratory distress, Clear bilaterally - Derm Derm: Normal color, Warm and dry, No rash - Psych Psych: Normal mood, Normal affect Results - Vitals Vitals: Vital Signs - 24 hr 11/01/23 11:51 Temperature 36.0 C L Heart Rate 68 Respiratory 16 Rate Blood Pressure 112/71 O2 Saturation 99 Oxygen O2 Source Room air PD Medical Decision Making - ED course Complexity details: considered differential, d/w patient ED course: 73-year-old female presented after a bat bite to her finger. She does not have a wound but is here for vaccine prophylaxis. That is being tested today and she expects to have the results of the rabies test today or tomorrow. She has been previously vaccinated with the current vaccine and previously had adequate titers but has not had a titer drawn since 2019. Per vaccine guidelines, the patient should receive 1 dose of the vaccine on day 0 and day 3. Patient was previously vaccinated therefore immunoglobulin is not indicated however there is a question about whether or not the patient titer would be considered adequate given it was 5 years ago. Her vaccines were given well over 3 years prior to exposure. I discussed with patient has a that will be tested today, she will follow-up if it is positive and get immunoglobulin, otherwise she will simply receive the day 3 vaccine. Patient to return on Tuesday for day 3 vaccine. Departure - Departure Disposition: 01 Home, Self Care Clinical Impression: Bat bite wound Condition: Good Instructions: Rabies Comments: As we discussed, you will need to follow-up on Tuesday which is days 3 for your second dose of vaccine. If if the animal tested positive for rabies which you should find out today for the, then I would recommend that you get the immunoglobulin as well which should be given as soon as possible. You can return at any point time once you get the results of that test. 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 Forms: PCP List
[2023-11-01] MEDS: RABIES VACCINE 2.5 UNIT SYRINGE IM ONE (12:48)
== END 2023-11-01 13:09 | disposition home or self-care (01) ==
LOC: ED 11:46
DX: S61.259A Open bite of unspecified finger without damage to nail, initial encounter (principal); W55.81XA Bitten by other mammals, initial encounter; Z20.3 Contact with and (suspected) exposure to rabies; Z23 Encounter for immunization; Z79.899 Other long term (current) drug therapy
CPT/HCPCS: 90471; 99283

== ENCOUNTER 2023-11-04 08:05 | Emergency (ER) | payer MEDICARE ==
--- NOTE | 2023-11-04 08:24 | ED Physician Documentation ---
History of Present Illness - Stated complaint Stated Complaint: 2ND RABIES SHOT - History obtained from History obtained from: Patient - History of Present Illness Timing: How many days ago (3) Quality: she is here for 2nd rabies vaccine shot. inital was 3 days ago. PD PAST MEDICAL HISTORY - Past Medical History Neuro: Migraines Psych: Depression, Anxiety - Past Surgical History Past Surgical History: No - Present Medications Home Medications: Ambulatory Orders Medication Instructions Recorded Confirmed Escitalopram Oxalate [Lexapro] 20 mg PO DAILY 12/16/15 09/13/22 Famciclovir [Famvir] 500 mg PO DAILY 12/16/15 09/13/22 SUMAtriptan [Imitrex] 20 mg NS DAILY 12/16/15 09/13/22 buPROPion HCL [Bupropion HCl Sr] 150 mg PO DAILY 12/16/15 09/13/22 - Allergies Allergies/Adverse Reactions: Allergies Allergy/AdvReac Type Severity Reaction Status Date / Time No Known Drug Allergies Allergy Verified 11/04/23 08:25 - Social History Does the pt smoke?: No Smoking Status: Never smoker Does the pt drink ETOH?: No Does the pt have substance abuse?: No - Immunizations Immunizations are current?: Yes Results - Vitals Vitals: Oxygen O2 Source Room air PD Medical Decision Making - ED course Complexity details: considered differential (previous primary immunization for rabies, so only getting 2 shot booster. Initial 3 days ago and this weill be the second. No side effects/problems from the first one.), d/w patient Departure - Departure Disposition: 01 Home, Self Care Clinical Impression: Bat bite wound Condition: Stable Record reviewed to determine appropriate education?: Yes Comments: You have received your second of the 2 booster vaccines for rabies. Watch for signs of local infection at the bite wound but otherwise no further follow-up needed. Forms: PCP List Discharge Date/Time: 11/04/23 08:50
[2023-11-04 08:33] VITALS: BP 134/76; O2SAT 96
[2023-11-04] MEDS: RABIES VACCINE 2.5 UNIT SYRINGE IM ONE (08:40)
== END 2023-11-04 08:50 | disposition home or self-care (01) ==
LOC: ED 08:05
DX: Z23 Encounter for immunization (principal)
CPT/HCPCS: 90471; 99283